=== PATIENT | female | born 1970 | race Caucasian/White ===

== ENCOUNTER 2021-10-26 08:50 | Outpatient (REF) | payer OTHER, SELFPAY ==
--- NOTE | ~2021-10-26 | FL_ITS ---
EXAMINATION: XR FLUOROSCOPY UPPER GI WITH AIR CLINICAL INFORMATION: Gastritis COMPARISON: None TECHNIQUE: Upper GI was performed using thin and thick barium and effervescent granules. FINDINGS: There is a small hiatal hernia. There is mild gastroesophageal reflux. There is fold thickening of the stomach suggestive of gastritis. There is a deformity and underdistention of the duodenal bulb questionable for changes from ulcer disease. No mass or stricture is seen. FLUOROSCOPY TIME: 1.2 minutes DOSE AREA PRODUCT: 8.6 haile per centimeter squared. 22 saved fluoroscopic images. FL/FL upper GI w air IMPRESSION: Fold thickening of the stomach suggestive of gastritis. Deformity and underdistention of the duodenal bulb questionable for changes from ulcer disease. Small hiatal hernia. Mild gastroesophageal reflux.
[2021-10-26 09:20] LABS: MANUAL DIFF FLAG NO
[2021-10-26 10:02] LABS: Basophils Absolute Auto 0.1 X10*3/uL (0.0-0.2); Basophils Percent Auto 0.7 % (0-2); Eosinophils Absolute Auto 0.3 X10*3/uL (0.0-0.4); Eosinophils Percent Auto 2.3 % (0-4); Hematocrit 50.6 % (37.0-47.0); Imm Gran Abs Auto 0.03 X10*3/uL (0.00-0.03); Imm Gran Pct Auto 0.3 % (0.0-0.4); Lymphocytes Absolute Auto 3.3 X10*3/uL (1.2-4.9); Lymphocytes Percent Auto 27.7 % (20-40); Mean Corpuscular HGB Conc 33.6 g/dl (31.0-35.0); Mean Corpuscular Hemoglobin 32.1 pg (27.0-33.0); Mean Corpuscular Volume 95.5 fL (80.0-98.0); Mean Platelet Volume 10.1 fL (9.4-12.3); Monocytes Absolute Auto 0.8 X10*3/uL (0.1-1.2); Monocytes Percent Auto 6.6 % (2-11); Neutrophils Absolute Auto 7.4 x10*3/uL (2.0-8.3); Neutrophils Percent Auto 62.4 % (45-73); Platelet Count 260 X10*3/uL (160-400); Red Cell Distribution Width 13.1 % (11.0-16.0); White Blood Count 11.9 X10*3/uL (4.8-10.8)
[2021-10-26 10:17] LABS: Alanine Aminotransferase 16 U/L (0-31); Albumin Level 4.5 g/dL (3.5-5.0); Alkaline Phosphatase 98 U/L (39-117); Anion Gap 14 (12-20); Aspartate Amino Transferase 26 U/L (5-31); Bilirubin Total 0.4 mg/dL (0.0-1.0); Blood Urea Nitrogen 10 mg/dL (9-16); Calcium 10.4 mg/dL (8.4-10.2); Carbon Dioxide 27 mmol/L (22-29); Chloride 104 mmol/L (96-108); Cholesterol 192 mg/dL; Estimated Glomerular Filt Rate > 60; Glucose Fasting 105 mg/dL (60-99); HDL Cholesterol 90 mg/dL; LDL Cholesterol Calculated 81 mg/dl; Sodium 140 mmol/L (135-145); Triglycerides 106 mg/dL
[2021-10-26 10:39] LABS: TSH reflex Free T4 0.51 uIU/mL (0.32-4.0)
[2021-10-26 11:09] LABS: Appearance Urine CLOUDY; Color Urine YELLOW; Glucose Urine UA NEG (NEG); Leukocyte Esterase Urine NEG (NEG); Nitrite Urine POS (NEG); PH 5.5 (5.0-8.0); Specific Gravity - Urine >= 1.030 (1.005-1.025); UACC Culture Trigger YES; Urine Blood 1+ (NEG); Urine Ketones 5 MG/DL (NEG); Urine Protein 1+ MG/DL (NEG-TRACE)
[2021-10-26 11:26] LABS: Bacteria Urine TRACE /LPF; Squamous Epithelial Cell Urine 2+ /LPF; WBC Urine 0 /HPF (0-4)
[2021-10-26 11:27] LABS: Amorphous Sediment Urine 4+ /LPF
== END 2021-10-26 08:51 | disposition home or self-care (01) ==
LOC: HO.XRAY 08:50
PROVIDERS: PCP Internal Medicine; Visit Provider Internal Medicine
DX: K29.70 Gastritis, unspecified, without bleeding (principal); J98.8 Other specified respiratory disorders; E78.00 Pure hypercholesterolemia, unspecified; J45.20 Mild intermittent asthma, uncomplicated; F17.200 Nicotine dependence, unspecified, uncomplicated
CPT/HCPCS: 36415; 74246; 80053; 80061; 81001; 81003; 84443; 85025; 87086

== ENCOUNTER 2024-04-20 12:42 | Outpatient (REF) | payer OTHER, SELFPAY ==
--- NOTE | ~2024-04-20 | XR_ITS ---
EXAMINATION: XR LUMBAR SPINE XR SHOULDER, LEFT CLINICAL INDICATION: Low back pain, left shoulder pain. COMPARISON: MRI lumbar spine 04/28/2017, x-ray lumbar spine 06/28/2016. TECHNIQUE: 3 views lumbar spine. 4 views left shoulder. FINDINGS: LUMBAR SPINE: Facet arthritis in the lower lumbar spine. Mild multilevel lumbar spondylosis with mild loss of disc space height at L4-L5. LEFT SHOULDER: Mild degenerative changes in the acromioclavicular joint with joint space narrowing and hypertrophic change. Glenohumeral alignment is preserved. No abnormal soft tissue calcifications identified adjacent to the humeral head. XR/XR lumbar spine 2-3V IMPRESSION: 1. Mild multilevel lumbar spondylosis with mild loss of disc space height at L4-L5. 2. Mild degenerative changes left acromioclavicular joint.
--- NOTE | ~2024-04-20 | XR_ITS ---
EXAMINATION: XR LUMBAR SPINE XR SHOULDER, LEFT CLINICAL INDICATION: Low back pain, left shoulder pain. COMPARISON: MRI lumbar spine 04/28/2017, x-ray lumbar spine 06/28/2016. TECHNIQUE: 3 views lumbar spine. 4 views left shoulder. FINDINGS: LUMBAR SPINE: Facet arthritis in the lower lumbar spine. Mild multilevel lumbar spondylosis with mild loss of disc space height at L4-L5. LEFT SHOULDER: Mild degenerative changes in the acromioclavicular joint with joint space narrowing and hypertrophic change. Glenohumeral alignment is preserved. No abnormal soft tissue calcifications identified adjacent to the humeral head. XR/XR shoulder LT min 2V IMPRESSION: 1. Mild multilevel lumbar spondylosis with mild loss of disc space height at L4-L5. 2. Mild degenerative changes left acromioclavicular joint.
== END 2024-04-20 12:43 | disposition home or self-care (01) ==
LOC: HO.XRAY 12:42
PROVIDERS: PCP Internal Medicine; Visit Provider Internal Medicine
DX: M25.512 Pain in left shoulder (principal); M54.50 Low back pain, unspecified
CPT/HCPCS: 72100; 73030

== ENCOUNTER 2024-07-29 10:30 | Outpatient (AMB) | payer OTHER, SELFPAY ==
--- NOTE | 2024-07-29 10:31 | A.OFFPC_ITS ---
Vital Signs 07/29/24 10:33 Height 5 ft 5 in Weight 142 lb 4 oz BMI 23.7 BP 110/80 Blood Pressure Location Lt brachial Position Sitting Pulse 99 Pulse Source Pulse Oximeter Pulse Oximetry (%) 96 Oxygen Delivery Method Room Air Intake Visit Reasons: follow up Intake Note: Patient is here to follow up on Asthma, LDDD, Anxiety. Pt decline flu shot today. Lidar Scientist Required: No Retail Specialist: Not Required per policy Accompanied by: Self / Same As Patient Allergies amoxicillin Allergy (Unknown, Verified 07/29/24 10:55) Unknown cephalexin [Keflex] Allergy (Unknown, Verified 07/29/24 10:55) Unknown citalopram Adverse Reaction (Unknown, Verified 07/29/24 10:55) increased depression/anger venlafaxine Adverse Reaction (Unknown, Verified 07/29/24 10:55) increased depression/anger Medication List - Last Reconciled 07/29/24 by Toribio Clark MD lorazepam 1 tablet 1 to 2 times a day only as needed for anxiety PO PRN; 30 days omeprazole 40 mg PO DAILY 30 days Ventolin HFA 90 mcg/actuation (albuterol sulfate) 2 puffs PO Q6H PRN NS Tobacco use date assessed: 07/29/24 Dental Screening Dental Screen Date: 07/29/24 Did you have a dental visit in the last 12 months?: No Did you have a dental problem in the last 6 months where you did not have access to dental care?: No Was dental information given to patient?: No HPI follow up HPI Details Patient comes in today for her follow up visit States that she feels her ears cracking a lot over the past couple of days - is concerned that she may have some ear infection States that she has been experiencing increased nasal and sinus congestion often lately and is thinking about getting herself one of the Navage nasal irrigation system that she keeps hearing about on the radio but she found out recently that they are quite expensive - about $80 to $90 per unit Is wondering if there is any way her insurance will help cover the unit Adds that she has been experiencing increased pain over her lower back for a while now and her left shoulder has been hurting a lot as well She denies any fever or sore throat; denies any headaches or dizziness Denies any chest pains, no increased SOB; she also denies any coughing No nausea/vomiting, no abdominal pain No change in bowel habits noted She continues to experience increased anxiety - states that Lorazepam helps but only temporarily and she really does not want to take it too much for fear of getting addicted to it [facility] Medical History Alcohol use Anxiety Asthma Gastritis Lumbar degenerative disc disease Smoker Surgical History No pertinent past surgical history Family History Father No problems noted. Mother No problems noted. Social History Housing: Apartment Alcohol intake: current Alcohol intake frequency: 3 or more drinks per day Alcohol type: wine Patient Tobacco Use Status: Current everyday Tobacco user Tobacco use type: Cigarette Cigarette Packs Per Day: 1 Cigarettes Per Day: 12 e-Cigarette/Vaping Use: Never Used Second Hand Smoke Exposure: Yes service: No Current occupational status: unemployed Cognitive needs: No Hearing needs: No Vision needs: No Questionnaire PHQ-9 Over the last 2 weeks, how often have you been bothered by any of the following problems? 1. Little interest or pleasure in doing things: nearly every day 2. Feeling down, depressed, or hopeless: several days 3. Trouble falling or staying asleep, or sleeping too much: nearly every day 4. Feeling tired or having little energy: more than half the days 5. Poor appetite or overeating: not at all 6. Feeling bad about yourself - or that you are a failure or have let yourself or your family down: more than half the days 7. Trouble concentrating on things, such as reading the newspaper or watching television: not at all 8. Moving or speaking so slowly that other people could have noticed. Or the opposite - being so fidgety or restless that you have been moving around a lot more than usual: not at all 9. Thoughts that you would be better off or of hurting yourself in some way: not at all Total score: 11 Depression Screening Interpretation: Positive Depression Screening Follow-up: Existing condition and New Medication prescribed Depression Screening Done: Yes 36410 - PHQ-9 Billing: Yes Source: Developed by Drs. Trae LDevorah Del Rio, Ed Joiner and colleagues, with an educational hair from [employer]. Thrive Questionnaire Date Thrive assessed: 07/29/24 I am a: Patient What is your living situation today?: I have a steady place to live Within the past 12 months, did the food you bought not last and you didn't have the money to get more?: Never true Within the past 12 months, did you worry whether your food would run out before you got money to buy more?: Never true Do you have trouble paying for medicines?: No Do you have trouble getting transportation to medical appointments?: No Do you have trouble paying your heating and electricity bill?: No Do you have trouble taking care of your child, family member or friend?: No Do you have trouble with day-to-day activities such as bathing, preparing meals, shopping, managing finances, etc.?: No Are you currently unemployed and looking for a job?: I choose not to answer this question Are you interested in more education?: No Currently or been in a relationship where the following occur: No concerns reported THRIVE Score: 0 AUDIT C Alcohol Use Questionnaire (AUDIT-C) 1. How often do you have a drink containing alcohol?: 4 or more times a week 2. How many drinks containing alcohol do you have on a typical day when you are drinking?: 1 or 2 3. How often do you have six or more drinks on one occasion?: Never Total Score: 4 Score Reviewed/Action Taken: Yes GLEN-7 AMB Questionnaire GLEN-7 Date GLEN - 7 assessed: 07/29/24 Feeling nervous, anxious, or on edge: 3 = Nearly every day Not being able to stop or control worryin = Nearly every day Worrying too much about different things: 3 = Nearly every day Trouble relaxin = More than half the days Being so restless that it is hard to sit still: 2 = More than half the days Becoming easily annoyed or irritable: 3 = Nearly every day Feeling afraid as if something awful might happen: 3 = Nearly every day Total GLEN-7 score (0-4 normal; 5-9 mild; 10-14 moderate; 15-21 severe): 19 Source: Developed by Devorah Quinn Kurt Kroenke and colleagues, with an educational hair from [employer]. Review of Systems Const Denies chills, Reports difficulty sleeping, Reports fatigue, Denies fever(s) and Denies headache(s) ENT Denies dysphagia, Denies dizziness, Denies otalgia (but feels her ears cracking a lot lately), Denies headache(s), Reports nasal congestion, Denies n mynor pain, Denies odynophagia, Denies sinus pain and Denies sore throat Card Denies chest pain, Denies palpitations and Denies dyspnea Resp Denies chest congestion, Denies cough, Denies dyspnea and Denies wheezing GI Denies abdominal pain, Denies constipation, Denies dysphagia, Denies heartburn, Denies diarrhea, Denies nausea, Denies odynophagia and Denies vomiting Denies difficulty voiding, Denies nocturia, Denies dysuria and Denies urinary urgency Musc Reports back pain (over the lower back - increasing), Reports arthralgias (in the left shoulder) and Denies neck pain Neuro Denies dizziness and Denies headache(s) Psych Reports anxiety (increased) Endo Reports fatigue and Denies palpitations Aller/Immun Denies wheezing Physical exam (Primary Care) Vital Signs: Last Vital Signs Pulse 99 07/29/24 10:33 BP 110/80 07/29/24 10:33 Pulse Ox 96 07/29/24 10:33 Oxygen Delivery Method Room Air 07/29/24 10:33 BMI result Body Mass Index 23.7 Tobacco/Smoking Status: Tobacco use Status Tobacco use date assessed 07/29/24 07/29/24 10:41 Patient Tobacco Use Status Current everyday Tobacco 07/29/24 10:41 Tobacco use type Cigarette 07/29/24 10:41 e-Cigarette/Vaping Use Never Used 07/29/24 10:41 PHQ-9: PHQ-9 Score PHQ-9: Total score 11 07/29/24 10:56 Depression Screening Interpretation: Positive Depression Screening Follow-up: Ex isting condition and New Medication prescribed Thrive Assessment: Date of Thrive Assessment Date Thrive assessed 07/29/24 07/29/24 10:41 Currently or been in a relationship where the following occur: No concerns reported Const General: no acute distress and alert HENMT Ears: TM's normal bilaterally and EAC's normal Throat: Yes posterior oropharynx normal and Yes tonsils normal (no TP congestion) Neck Neck: Yes no lymphadenopathy and Yes supple Thyroid: Thyroid normal Resp Auscultation: clear to auscultation bilaterally, no rales and no wheezes Cardio Rate: regular rate Rhythm: regular rhythm Heart sounds: no murmurs GI Palpation (GI): Soft to palpation and nontender Auscultation: normal bowel sounds General: Yes no CVA tenderness Back/Spine/Pelvis Back: no CVA tenderness Thoracic/Lumbar Spine: lumbar spinal tenderness Skin Rashes: no rashes Extrem General: Yes no clubbing, cyanosis or edema Left upper extremity: shoulder/upper arm Details: tenderness Location: of the A- C joint; no swelling Coding Level of Care Code Est Pt Level 4 (17936) Diagnoses Degeneration of intervertebral disc of lumbar region with discogenic back pain M51.360 Disc-related pain type: discogenic back pain only Primary osteoarthritis, left shoulder M19.012 Allergic rhinitis, unspecified seasonality, unspecified trigger J30.9 Allergic rhinitis trigger: unspecified Allergic rhinitis seasonality: unspecified Mild intermittent asthma without complication J45.20 Asthma severity: mild Asthma persistence: intermittent Asthma complication type: uncomplicated Gastritis without bleeding, unspecified chronicity, unspecified gastritis type K29.70 Gastritis type: unspecified gastritis Chronicity: unspecified Gastritis bleeding: without bleeding Loss of height R29.890 Alcohol use Z72.89 Anxiety F41.9 Smoker F17.200 Assessment & Plan Assessment & Plan (1) Lumbar degenerative disc disease: Code(s): M51.36 - Other intervertebral disc degeneration, lumbar region Category: Medical Qualifiers: Disc-related pain type: discogenic back pain only Qualified Code(s): M51.360 - Other intervertebral disc degeneration, lumbar region with discogenic back pain only Plan: Reinforced activity and weight-lifting restrictions Lumbar spine x-rays done back in April 2024 revealed (+) mild multilevel lumbar spondylosis with mild loss of disc space height at L4-L5 As she reports experiencing increasing pain over her lower back lately, will refer her to physical therapy for them to help patient work on her lower back issues (2) Primary osteoarthritis, left shoulder: Code(s): M19.012 - Primary osteoarthritis, left shoulder Category: Medical Plan: X-rays of the left shoulder done in April 2024 revealed (+) mild degenerative changes left acromioclavicular joint Will also refer her to physical therapy to help her work on her shoulder issues (3) Allergic rhinitis: Code(s): J30.9 - Allergic rhinitis, unspecified Category: Medical Qualifiers: Allergic rhinitis trigger: unspecified Allergic rhinitis seasonality: unspecified Qualified Code(s): J30.9 - Allergic rhinitis, unspecified Plan: Will start patient again on Fluticasone 50 mcg nasal spray QD PRN Per request, have provided her with printed Rx for Navage nasal irrigation system - patient will try to fill this at her local pharmacy but advised that her insurance will likely not cover this (4) Asthma: Code(s): J45.909 - Unspecified asthma, uncomplicated Category: Medical Qualifiers: Asthma severity: mild Asthma persistence: intermittent Asthma complication type: uncomplicated Qualified Code(s): J45.20 - Mild intermittent asthma, uncomplicated Plan: Controlled Continue Albuterol HFA 2 puffs 4 times a day as needed (5) Gastritis: Code(s): K29.70 - Gastritis, unspecified, without bleeding Category: Medical Qualifiers: Gastritis type: unspecified gastritis Chronicity: unspecified Gastritis bleeding: without bleeding Qualified Code(s): K29.70 - Gastritis, unspecified, without bleeding Plan: Reinforced dietary restrictions Upper GI series in October 2021 revealed (+) changes consistent with gastritis and also possibly an ulcer Continue Omeprazole 40 mg QD States that she has been doing a lot better symptom-doran on Omeprazole and has not had any symptom flare up since she was started on the Rx last year (6) Loss of height: Code(s): R29.890 - Loss of height Category: Medical Plan: Patient was surprised at finding out that she seems to have lost a couple of inches in her height when it was measured here in the office when she was being triaged States that she has never had a BMD done and it has been about 6 to 7 years now since she last had her menstrual period Will go ahead and send her for BMD for osteoporosis screening (7) Alcohol use: Code(s): Z72.89 - Other problems related to lifestyle Category: Social Hx Plan: Patient is counseled again on the dangers of ETOH and urged to quit drinking or to at least cut back on the amount of alcohol she consumes daily (8) Anxiety: Code(s): F41.9 - Anxiety disorder, unspecified Category: Medical Plan: Continue Lorazepam 1 mg 1 to 2 times a day as needed - states that this helps but she tries not to take it too often for fear of becoming addicted to the Rx Have advised patient that the best way to go about controlling her anxiety better is to start taking a maintenance Rx and if it works well enough, she may not even feel the need to take any Lorazepam - patient now agrees to this Will start her on Sertraline 25 mg QD - patient is advised to call in a month or so if she does not feel that the Rx is helping enough and we will then try to gradually increase her dose until she feels it is working for her (9) Smoker: Code(s): F17.200 - Nicotine dependence, unspecified, uncomplicated Category: Social Hx Plan: Patient is counseled again on smoking cessation Plan To return in 6 months for her next annual physical examination Orders: Orders XR DEXA axial skeleton 07/29/24 Z78.0 - Asymptomatic menopausal state PT Evaluation and Treatment 07/29/24 J30.9 - Allergic rhinitis, unspecified, M19.012 - Primary osteoarthritis, left shoulder, M51.36 - Other intervertebral disc degeneration, lumbar region Medications: New [NAVAGE NASAL IRRIGATION SYSTEM] As directed 1 ea 0RF J30.9 - Allergic rhinitis, unspecified, R09.81 - Nasal congestion fluticasone propionate 50 mcg/actuation administer into each nostril 2 sprays intranasal DAILY 30 days PRN 16 grams 5RF allergy symptoms sertraline 25 mg PO DAILY 30 days 30 tabs 3RF F41.9 - Anxiety disorder, unspecified
[2024-07-29 10:33] VITALS: BP 110/80; PULSE 99; O2SAT 96; BMI 23.7
== END 2024-07-29 11:12 | disposition home or self-care (01) ==
PROVIDERS: PCP Internal Medicine; Visit Provider Internal Medicine
DX: M51.360 Other intervertebral disc degeneration, lumbar region with discogenic back pain only (principal); M19.012 Primary osteoarthritis, left shoulder; J30.9 Allergic rhinitis, unspecified; J45.20 Mild intermittent asthma, uncomplicated; K29.70 Gastritis, unspecified, without bleeding; R29.890 Loss of height; Z72.89 Other problems related to lifestyle; F41.9 Anxiety disorder, unspecified; F17.200 Nicotine dependence, unspecified, uncomplicated

== ENCOUNTER → 2024-07-29 10:30 | Outpatient (BNVA) | payer OTHER, SELFPAY | PROVIDERS: PCP Internal Medicine; Visit Provider Internal Medicine | DX: M51.360 Other intervertebral disc degeneration, lumbar region with discogenic back pain only (principal); M19.012 Primary osteoarthritis, left shoulder; J30.9 Allergic rhinitis, unspecified; J45.20 Mild intermittent asthma, uncomplicated; K29.70 Gastritis, unspecified, without bleeding; R29.890 Loss of height | CPT/HCPCS: 96127; 99212 ==

== ENCOUNTER 2024-08-18 10:23 | Outpatient (REF) | payer OTHER, SELFPAY ==
--- NOTE | ~2024-08-18 | MM_ITS ---
EXAMINATION: BONE DENSITOMETRY CLINICAL INDICATION: Menopause. COMPARISON: This is the patient's baseline examination. TECHNIQUE: Using a [employer] DXA System (software version: 13.1) manufactured by [employer], dual-energy x-ray absorptiometry was performed of the lumbar spine and left hip. The images are of good technical quality. Summary results are attached. FINDINGS: LEFT FEMUR, NECK: BMD 0.616 g/cm2, Z-score -2.0, T-score -3.0, osteoporosis. LEFT FEMUR, TOTAL: BMD 0.679 g/cm2, Z-score -2.0, T-score -2.6, osteoporosis. AP SPINE L1-L4: BMD 0.894 g/cm2, Z-score -1.6, T-score -2.4, osteopenia. IDENTIFIED RISK FACTORS: Menopause, height loss, alcohol (3 or more units per day), tobacco use (current smoker). HISTORY OF FRACTURE: None listed. MEDICATIONS: Multivitamin. MM/XR DEXA axial skeleton IMPRESSION: 1. DIAGNOSIS: Osteoporosis based on the lowest T-score value of -3.0 in the femoral neck applying World Health Organization criteria. 2. 10-YEAR FRACTURE RISK PREDICTION, FRAX: According to the guidelines, FRAX calculation should only be performed on patients in the osteopenia bone density category. Therefore, FRAX was not performed on this patient. 3. Treatment Recommendations: NOF guidelines recommend consideration for treatment in postmenopausal women and men age 50 and older presenting with the following: -A hip or vertebral (clinical or morphometric) fracture. -T-score less than or equal to -2.5 at the femoral neck or spine after appropriate evaluation to exclude secondary causes. -Low bone mass at the hip or spine and a 10-year fracture probability by FRAX of greater than or equal to 3% for hip fracture or greater than or equal to 20% for major osteoporotic fracture based on the [place] adapted WHO algorithm. 4. Other Recommendations: All treatment decisions require clinical judgment and consideration of individual patient factors, including patient preferences, comorbidities, previous drug use, risk factors not captured in the FRAX model (e.g. frailty, falls, vitamin D deficiency, increased bone turnover, interval significant decline in bone density) and possible under or overestimation of fracture risk by FRAX. Additional medical evaluation for secondary cause of low bone mineral density may be appropriate. FUTURE SCAN RECOMMENDATION: People with diagnosed cases of osteoporosis or at high risk for fracture should have regular bone mineral density tests. For patients eligible for Medicare, routine testing is allowed once every 2 years. The testing frequency can be increased to one year for patients who have rapidly progressing disease, those who are receiving or discontinuing medical therapy to restore bone mass, or have additional risk factors. Electronically signed by: Sweta Ulloa MD 08/19/2024 09:03 AM FERNANDA GROVER
== END 2024-08-18 10:24 | disposition home or self-care (01) ==
LOC: HO.MAMMO 10:23
PROVIDERS: PCP Internal Medicine; Visit Provider Internal Medicine
DX: Z78.0 Asymptomatic menopausal state (principal)
CPT/HCPCS: 77080

== ENCOUNTER 2024-11-26 12:08 | Emergency (ER) | payer OTHER, SELFPAY ==
[2024-11-26 12:15] VITALS: BP 177/97; PULSE 116; RESP 18; TEMP 36.8; O2SAT 97; BMI 22.8
--- NOTE | 2024-11-26 12:20 | ED.GENADULT ---
HPI - General Adult General Chief complaint: Allergic Reaction Stated complaint: Chemical Reaction to Hair Dye 11/23/24 Time Seen by Provider: 11/26/24 19:12 Related Data Previous Rx's ?Medication ?Instructions ?Recorded lorazepam 0.5 mg tablet See Rx Instructions PO .COMPLEX 01/20/24 PRN anxiety 30 days #60 tabs [employer]ATION SYSTEM #1 ea 07/29/24 fluticasone propionate 50 2 spray intranasal DAILY PRN 07/29/24 mcg/actuation nasal allergy symptoms 30 days #16 grams spray,suspension sertraline 25 mg tablet 25 mg PO DAILY 30 days #30 tabs 07/29/24 Ventolin HFA 90 mcg/actuation 2 puff PO Q6H PRN for wheezing #18 09/20/24 aerosol inhaler (albuterol sulfate) grams omeprazole 40 mg capsule,delayed 40 mg PO DAILY 30 days #90 caps 11/19/24 release famotidine 40 mg tablet (Pepcid) 40 mg PO DAILY #5 tabs 11/26/24 ibuprofen 600 mg tablet 600 mg PO Q8H PRN fever or pain 11/26/24 #30 tabs mupirocin calcium 2 % topical cream 1 appl topical TID #30 grams 11/26/24 prednisone 50 mg tablet 50 mg PO DAILY #5 tabs 11/26/24 tramadol 50 mg tablet 50 mg PO BID PRN pain #8 tabs 11/26/24 Allergies Allergy/AdvReac Type Severity Reaction Status Date / Time amoxicillin Allergy Unknown Unknown Verified 11/26/24 12:17 cephalexin [Keflex] Allergy Unknown Unknown Verified 11/26/24 12:17 citalopram AdvReac Unknown increased Verified 11/26/24 12:17 depression/anger venlafaxine AdvReac Unknown increased Verified 11/26/24 12:17 depression/anger PMFSH Past Medical History Medical History Lumbar degenerative disc disease Gastritis Smoker Alcohol use Anxiety Asthma Surgical History No pertinent past surgical history Family History Family History Father No problems noted. Mother No problems noted. Social History Social History Housing: Apartment Alcohol intake: current Alcohol intake frequency: holidays/special occasions only Alcohol type: wine Patient Tobacco Use Status: Current everyday Tobacco user Tobacco use type: Cigarette Cigarette Packs Per Day: 1 Cigarettes Per Day: 12 Smoked in Last 30 Days: Yes e-Cigarette/Vaping Use: Never Used Second Hand Smoke Exposure: Yes Use of substances other than those prescribed or required for medical reasons: Yes Substance Use Type: Marijuana Advance Directives: No Advance Directives Information Provided: No service: No Current occupational status: unemployed Cognitive needs: No Hearing needs: No Vision needs: No Physical Exam ED Vital Signs: Vital Signs - 24 hr 11/26/24 12:15 11/26/24 19:45 Temperature 98.3 F 97.6 F Pulse Rate 116 H 86 Respiratory Rate 18 18 Blood Pressure 177/97 H 135/82 Pulse Oximetry 97 98 Oxygen Delivery Method Room Air Room Air BMI result Body Mass Index 22.8 Course Course Course Narrative: This is a rapid medical exam performed by Reshma Fox PA-C. The patient is a 54-year-old female with a history of arthritis, anxiety, asthma, who presents with potential allergic reaction. Patient states she was seen by a new hair sample matcher, she had hair coloring done. The next day the patient developed a painful rash over parts of her scalp, she also developed some irritation over the right eye. When she woke this morning, the eye was swollen and erythematous. Denies fever. On exam, she has periorbital erythema on the right both upper and lower lids are edematous. She has no angioedema, no complaint of dysphagia, odynophagia dyspnea. We will be screening basic labs, the patient will require imaging, concern for periorbital cellulitis versus allergic reaction. Having said that, the patient is stable, and can return to the waiting room pending her full medical assessment. Medications Administered Discontinued Medications Generic Name Dose Route Start Last Admin Trade Name Freq PRN Reason Stop Dose Admin Diphenhydramine HCl 50 mg 11/26/24 12:19 11/26/24 12:54 Diphenhydramine Hcl 25 Mg Capsule PO 11/26/24 12:20 50 mg ONCE ONE Administration Diphenhydramine HCl 50 mg 11/26/24 19:21 11/26/24 19:35 Diphenhydramine Hcl 50 Mg/Ml Vial IVPUSH 11/26/24 19:22 50 mg ONCE ONE Administration Famotidine 20 mg 11/26/24 12:19 11/26/24 12:54 Famotidine 20 Mg Tablet PO 11/26/24 12:20 20 mg ONCE ONE Administration Famotidine 20 mg 11/26/24 19:21 11/26/24 19:35 Famotidine/Pf 20 Mg/2 Ml Vial IVPUSH 11/26/24 19:22 20 mg ONCE ONE Administration Methylprednisolone Sodium Succinate 125 mg 11/26/24 19:21 11/26/24 19:35 Methylprednisolone Sod Succ 125 Mg/2 Ml Vial IVPUSH 11/26/24 19:22 125 mg ONCE ONE Administration Morphine Sulfate 2 mg 11/26/24 19:21 11/26/24 19:35 Morphine Sulfate 2 Mg/Ml Cartridge IVPUSH 11/26/24 19:22 2 mg ONCE ONE Administration Protocol Medical Decision Making Lab Data 11/26/24 13:15 11/26/24 13:15 Labs: Lab Results 11/26/24 Range/Units 13:15 WBC 13.9 H (4.8-10.8) X10*3/uL RBC 4.95 (4.20-5.50) X10*6/uL Hgb 15.6 (12.0-16.0) g/dl Hct 46.7 (37.0-47.0) % MCV 94.3 (80.0-98.0) fL MCH 31.5 (27.0-33.0) pg MCHC 33.4 (31.0-35.0) g/dl RDW 12.2 (11.0-16.0) % Plt Count 334 D (160-400) X10*3/uL MPV 10.2 (9.4-12.3) fL Immature Gran % (Auto) 0.4 (0.0-0.4) % Neut % (Auto) 60.1 (45-73) % Lymph % (Auto) 21.7 (20-40) % [place] % (Auto) 6.5 (2-11) % Eos % (Auto) 10.7 H (0-4) % Baso % (Auto) 0.6 (0-2) % Lymph # (Auto) 3.0 (1.2-4.9) X10*3/uL [place] # (Auto) 0.9 (0.1-1.2) X10*3/uL Eos # (Auto) 1.5 H (0.0-0.4) X10*3/uL Baso # (Auto) 0.1 (0.0-0.2) X10*3/uL Abs Immat Gran (auto) 0.06 H (0.00-0.03) X10*3/uL Absolute Neuts (auto) 8.4 H (2.0-8.3) x10*3/uL Absolute Nucleated RBC 0.000 (0.0-0.012) X10*3/uL Nucleated RBC % (auto) 0.0 (0.0-0.2) /100WBC ESR 11 (0-20) MM/HR Sodium 140 (135-145) mmol/L Potassium 4.3 (3.3-5.1) mmol/L Chloride 108 (96-108) mmol/L Carbon Dioxide 24 (22-29) mmol/L Anion Gap 12 (12-20) BUN 13 (9-16) mg/dL Creatinine 0.81 (0.5-1.4) mg/dL Estim Creat Clear Calc 76.2 Estimated GFR > 60 Random Glucose 113 (60-115) mg/dL Calcium 9.9 (8.4-10.2) mg/dL Magnesium 1.8 (1.6-2.6) mg/dL C-Reactive Protein 1.36 H (< or = 0.50) mg/dL Discharge Plan Discharge Clinical Impression: Allergic reaction to chemical substance, Impetigo Patient Disposition: Home, Self-Care Instructions: Impetigo (ED), Chemical Skin Burn (ED) Additional Instructions: Please follow-up with your primary care physician tomorrow. If you have any worsening or new symptoms, please return to the emergency room or call 911 Prescriptions: New mupirocin calcium 2 % cream 1 appl topical TID Qty: 30 2RF prednisone 50 mg tablet 50 mg PO DAILY Qty: 5 0RF famotidine [Pepcid] 40 mg tablet 40 mg PO DAILY Qty: 5 0RF ibuprofen 600 mg tablet 600 mg PO Q8H PRN (Reason: fever or pain) Qty: 30 0RF tramadol 50 mg tablet 50 mg PO BID PRN (Reason: pain) Qty: 8 0RF No Action lorazepam 0.5 mg tablet See Rx Instructions PO .COMPLEX PRN (Reason: anxiety) 30 Days Qty: 60 1RF Rx Instructions: 1 tablet 1 to 2 times a day only as needed for anxiety PO PRN; albuterol sulfate [Ventolin HFA] 90 mcg/actuation HFA aerosol inhaler 2 puff PO Q6H PRN (Reason: for wheezing) Qty: 18 5RF omeprazole 40 mg capsule,delayed release(DR/EC) 40 mg PO DAILY 30 Days Qty: 90 3RF (DME) [employer] SYSTEM See Rx Instructions .Route .MEDSUPPLY Qty: 1 0RF Rx Instructions: As directed fluticasone propionate 50 mcg/actuation spray,suspension 2 spray intranasal DAILY PRN (Reason: allergy symptoms) 30 Days Qty: 16 5RF Rx Instructions: administer into each nostril sertraline 25 mg tablet 25 mg PO DAILY 30 Days Qty: 30 3RF Print Language: Burmese
[2024-11-26] MEDS: diphenhydrAMINE HCL 25 MG CAPSULE 50 MG PO (12:54)
[2024-11-26] MEDS: Famotidine 20 MG TABLET PO (12:54)
[2024-11-26 13:22] LABS: MANUAL DIFF FLAG NO
[2024-11-26 13:27] LABS: Basophils Absolute Auto 0.1 X10*3/uL (0.0-0.2); Basophils Percent Auto 0.6 % (0-2); Eosinophils Absolute Auto 1.5 X10*3/uL (0.0-0.4); Eosinophils Percent Auto 10.7 % (0-4); Hematocrit 46.7 % (37.0-47.0); Hemoglobin 15.6 g/dl (12.0-16.0); Imm Gran Abs Auto 0.06 X10*3/uL (0.00-0.03); Imm Gran Pct Auto 0.4 % (0.0-0.4); Lymphocytes Percent Auto 21.7 % (20-40); Mean Corpuscular HGB Conc 33.4 g/dl (31.0-35.0); Mean Corpuscular Hemoglobin 31.5 pg (27.0-33.0); Mean Corpuscular Volume 94.3 fL (80.0-98.0); Mean Platelet Volume 10.2 fL (9.4-12.3); Monocytes Absolute Auto 0.9 X10*3/uL (0.1-1.2); Monocytes Percent Auto 6.5 % (2-11); Neutrophils Absolute Auto 8.4 x10*3/uL (2.0-8.3); Neutrophils Percent Auto 60.1 % (45-73); Platelet Count 334 X10*3/uL (160-400); Red Blood Count 4.95 X10*6/uL (4.20-5.50); Red Cell Distribution Width 12.2 % (11.0-16.0); White Blood Count 13.9 X10*3/uL (4.8-10.8)
[2024-11-26 13:40] LABS: Anion Gap 12 (12-20); Blood Urea Nitrogen 13 mg/dL (9-16); C Reactive Protein 1.36 mg/dL (< or = 0.50); Calcium 9.9 mg/dL (8.4-10.2); Carbon Dioxide 24 mmol/L (22-29); Chloride 108 mmol/L (96-108); Creatinine Clr Calc Pharmacy 76.2; Estimated Glomerular Filt Rate > 60; Glucose Random 113 mg/dL (60-115); Magnesium 1.8 mg/dL (1.6-2.6); Potassium 4.3 mmol/L (3.3-5.1); Sodium 140 mmol/L (135-145)
[2024-11-26 14:12] LABS: Erythrocyte Sedimentation Rate 11 MM/HR (0-20)
--- NOTE | 2024-11-26 19:23 | ED.ALLEREA ---
HPI - Allergic Reaction General Chief complaint: Allergic Reaction Stated complaint: Chemical Reaction to Hair Dye 11/23/24 Time Seen by Provider: 11/26/24 19:12 Source: patient Mode of arrival: ambulatory Limitations: no limitations History of Present Illness ED Provider: Dr. Vania Diaz HPI narrative: Patient comes to the emergency room complaining of an allergic reaction versus chemical burn to the scalp and forehead. Patient states that 3 days ago she went to the hair salon to dye her hair. In the evening after getting her dyed, the patient had some itching throughout her scalp. Patient thought it was secondary to dry skin from the chemical use. However, next day in the morning, her scalp started burning/hurting quite a bit. The patient also noticed that she had new irritation around her eyes in the skin, not the actual eye. Yesterday, patient noted that she was draining yellowish fluid from her scalp, pain in the scalp worsened. Patient also noted that there are blister-like lesions under both her eyes. Patient denies chest pain or shortness of breath. Denies trouble swallowing, denies any swelling in the oropharynx. Patient reports she does not have any new products at home including shampoo/body wash Related Data Previous Rx's ?Medication ?Instructions ?Recorded lorazepam 0.5 mg tablet See Rx Instructions PO .COMPLEX 01/20/24 PRN anxiety 30 days #60 tabs [employer] #1 ea 07/29/24 fluticasone propionate 50 2 spray intranasal DAILY PRN 07/29/24 mcg/actuation nasal allergy symptoms 30 days #16 grams spray,suspension sertraline 25 mg tablet 25 mg PO DAILY 30 days #30 tabs 07/29/24 Ventolin HFA 90 mcg/actuation 2 puff PO Q6H PRN for wheezing #18 09/20/24 aerosol inhaler (albuterol sulfate) grams omeprazole 40 mg capsule,delayed 40 mg PO DAILY 30 days #90 caps 11/19/24 release famotidine 40 mg tablet (Pepcid) 40 mg PO DAILY #5 tabs 11/26/24 ibuprofen 600 mg tablet 600 mg PO Q8H PRN fever or pain 11/26/24 #30 tabs mupirocin calcium 2 % topical cream 1 appl topical TID #30 grams 11/26/24 prednisone 50 mg tablet 50 mg PO DAILY #5 tabs 11/26/24 tramadol 50 mg tablet 50 mg PO BID PRN pain #8 tabs 11/26/24 Allergies Allergy/AdvReac Type Severity Reaction Status Date / Time amoxicillin Allergy Unknown Unknown Verified 11/26/24 12:17 cephalexin [Keflex] Allergy Unknown Unknown Verified 11/26/24 12:17 citalopram AdvReac Unknown increased Verified 11/26/24 12:17 depression/anger venlafaxine AdvReac Unknown increased Verified 11/26/24 12:17 depression/anger Review of Systems Review of Systems: Constitutional : No Weight loss, No Fever, No Chills, No Night Sweats, No Fatigue, No Malaise ENT/Mouth : No Hearing loss, No Ear Pain, No Nasal Congestion, No Sinus Pain, No Hoarseness, No sore throat, No Rhinorrhea, No Swallowing Difficulty Eyes: No Eye Pain, No Swelling, No Redness, No Foreign Body, No Discharge, No Vision Changes Cardiovascular : No Chest Pain, No SOB, No Dyspnea on Exertion, No Orthopnea, No Edema, No Palpitations Respiratory : No Cough, No Sputum, No Wheezing, No Smoke Exposure, No Dyspnea Gastrointestinal : No Nausea, No Vomiting, No Diarrhea, No Constipation, No abdominal Pain, No Hematochezia, No Melena Genitourinary : no irregular bleeding, No Dysuria, No Urinary Frequency, No Hematuria, No Urinary Incontinence, No Urgency, No Flank Pain, No Urinary Flow Changes, No Hesitancy Musculoskeletal : No joint pain, No Myalgias, No Joint Swelling Skin : Complaining of skin burning , pain, and itching in the scalp, forehead, Also fluid filled blisters under both eyes Neuro : No Weakness, No Numbness, No Paresthesias, No Loss of Consciousness, No Dizziness, No Headache Psych : No Anxiety/Panic, No Depression, No SI/HI/AH/VH, No Social Issues, Heme/Lymph: No Bruising, No Bleeding,No Lymphadenopathy Endocrine : No Polyuria, No Polydipsia, No Temperature Intolerance [facility] Past Medical History Medical History (Updated 11/26/24 @ 21:23 by Vania Diaz MD) Allergic rhinitis Lumbar degenerative disc disease Gastritis Smoker Alcohol use Anxiety Asthma Surgical History No pertinent past surgical history Family History Family History Father No problems noted. Mother No problems noted. Social History Social History Housing: Apartment Alcohol intake: current Alcohol intake frequency: holidays/special occasions only Alcohol type: wine Patient Tobacco Use Status: Current everyday Tobacco user Tobacco use type: Cigarette Cigarette Packs Per Day: 1 Cigarettes Per Day: 12 Smoked in Last 30 Days: Yes e-Cigarette/Vaping Use: Never Used Second Hand Smoke Exposure: Yes Use of substances other than those prescribed or required for medical reasons: Yes Substance Use Type: Marijuana Advance Directives: No Advance Directives Information Provided: No service: No Current occupational status: unemployed Cognitive needs: No Hearing needs: No Vision needs: No Physical Exam ED Vital Signs: Vital Signs - 24 hr 11/26/24 12:15 11/26/24 19:45 11/26/24 21:27 Temperature 98.3 F 97.6 F 99.1 F Pulse Rate 116 H 86 83 Respiratory Rate 18 18 18 Blood Pressure 177/97 H 135/82 133/77 Pulse Oximetry 97 98 96 Oxygen Delivery Method Room Air Room Air Room Air BMI result Body Mass Index 22.8 Const Other: Appearance: Alert. Oriented X3. Patient looks uncomfortable Eyes: Pupils equal, round and reactive to light. White sclera, normal eye movements, no conjunctival injection ENT: Pharynx normal. Neck: Normal inspection. Neck supple. No lymph nodes noted. No crepitus CVS: Normal heart rate and rhythm. Pulses normal. Normal S1 and S2 Respiratory: No respiratory distress. Breath sounds normal. No Wheezing. No rales Abdomen: Soft and nontender. No rigidity. No distention. Skin: Patient has a significant erythema on the forehead, no vesicles. The patient has 3 cm x 1 cm blisters in the cheecks under the lower eyelids, more prominent under the right eye. Patient's hair on the left side of the scalp is completely matted, mixed with honey crust material Extremities: No lower extremity edema. No Lacerations. No Rash Neuro: Oriented X 3. No motor deficit. No sensory deficit. Moving all extremities. No slurred speech. CN 2 through 12 grossly intact Psych: calm, cooperative, tearful Course Course Course Narrative: This is a rapid medical exam performed by Reshma Fox PA-C. The patient is a 54-year-old female with a history of arthritis, anxiety, asthma, who presents with potential allergic reaction. Patient states she was seen by a new office chair assembler, she had hair coloring done. The next day the patient developed a painful rash over parts of her scalp, she also developed some irritation over the right eye. When she woke this morning, the eye was swollen and erythematous. Denies fever. On exam, she has periorbital erythema on the right both upper and lower lids are edematous. She has no angioedema, no complaint of dysphagia, odynophagia dyspnea. We will be screening basic labs, the patient will require imaging, concern for periorbital cellulitis versus allergic reaction. Having said that, the patient is stable, and can return to the waiting room pending her full medical assessment. Patient will be receiving some pain medication, IV meds including Solu-Medrol, Pepcid and Benadryl I discussed with the patient's nurse and tech that we need to clean the matted and see what is happening underneath the matted hair. I believe there will be a large of significant irritations versus chemical burn Medications Administered Discontinued Medications Generic Name Dose Route Start Last Admin Trade Name Teresa PRN Reason Stop Dose Admin Diphenhydramine HCl 50 mg 11/26/24 12:19 11/26/24 12:54 Diphenhydramine Hcl 25 Mg Capsule PO 11/26/24 12:20 50 mg ONCE ONE Administration Diphenhydramine HCl 50 mg 11/26/24 19:21 11/26/24 19:35 Diphenhydramine Hcl 50 Mg/Ml Vial IVPUSH 11/26/24 19:22 50 mg ONCE ONE Administration Famotidine 20 mg 11/26/24 12:19 11/26/24 12:54 Famotidine 20 Mg Tablet PO 11/26/24 12:20 20 mg ONCE ONE Administration Famotidine 20 mg 11/26/24 19:21 11/26/24 19:35 Famotidine/Pf 20 Mg/2 Ml Vial IVPUSH 11/26/24 19:22 20 mg ONCE ONE Administration Methylprednisolone Sodium Succinate 125 mg 11/26/24 19:21 11/26/24 19:35 Methylprednisolone Sod Succ 125 Mg/2 Ml Vial IVPUSH 11/26/24 19:22 125 mg ONCE ONE Administration Morphine Sulfate 2 mg 11/26/24 19:21 11/26/24 19:35 Morphine Sulfate 2 Mg/Ml Cartridge IVPUSH 11/26/24 19:22 2 mg ONCE ONE Administration Protocol Medical Decision Making Medical Decision Making MDM Narrative: My interpretation of labs: Patient's hematology is 13.9, likely reactive leukocytosis, chemistry within normal limits, CRP mildly elevated Patient's techs and nurse assisted the patient to wash her hair and untangle the hair mat with baby shampoo Once the matted hair was cleaned, I was able to visualize the patient's scalp. It is difficult to say if this scalp lesion is a chemical burn versus an allergic reaction versus contact dermatitis. However, there are honey-crusted lesions throughout the left side of the scalp, patient likely has impetigo secondary to the initial chemical insult When patient arrived to the emergency room, she was given p.o. Benadryl and Pepcid. When I saw the patient, I recommended IV treatment. Patient received IV Solu-Medrol, Pepcid, Benadryl. Also, patient seemed significantly uncomfortable, in pain. Patient was given a dose of IV morphine. After the IV treatment, patient has erythema of the face improved. Patient is still has edema on the face cheeks under the lower eyelids. The erythema around the eyelids improved significantly. This makes periorbital cellulitis unlikely. Given that the patient had improvement with steroids, it is possible the patient may have had an allergic reaction. However, as mentioned above, chemical burn/dermatitis can not be ruled out Patient states that she is up-to-date with her tetanus shot, states that she received it a couple of years ago Prior to discharge, I applied bacitracin to the patient's scalp on the left I discussed with the patient that she needs to apply this 3 times a day. At home she may wash her hair with hypoallergenic shampoo and lukewarm water when she takes showers At this time, I do not think that the patient needs systemic antibiotics Patient was sent home with a prescription for mupirocin, prednisone, Pepcid, and tramadol p.r.n. pain. We discussed the potential of addiction when taking p.o. narcotics. Patient states that she will use this medication judiciously, and intends to use it mostly at night if the pain is severe and can not sleep Patient discharged in stable condition, blood pressure 135/82, heart rate 86, respirations 18, temperature 97.6 degrees, oxygen saturation 98% on room air Differential Diagnosis Differential Diagnoses: The differential diagnosis associated with the presentation includes (As above) Lab Data MDM Lab Attestation statement: I reviewed the patient's lab results. 11/26/24 13:15 11/26/24 13:15 Labs: Lab Results 11/26/24 Range/Units 13:15 WBC 13.9 H (4.8-10.8) X10*3/uL RBC 4.95 (4.20-5.50) X10*6/uL Hgb 15.6 (12.0-16.0) g/dl Hct 46.7 (37.0-47.0) % MCV 94.3 (80.0-98.0) fL MCH 31.5 (27.0-33.0) pg MCHC 33.4 (31.0-35.0) g/dl RDW 12.2 (11.0-16.0) % Plt Count 334 D (160-400) X10*3/uL MPV 10.2 (9.4-12.3) fL Immature Gran % (Auto) 0.4 (0.0-0.4) % Neut % (Auto) 60.1 (45-73) % Lymph % (Auto) 21.7 (20-40) % [place] % (Auto) 6.5 (2-11) % Eos % (Auto) 10.7 H (0-4) % Baso % (Auto) 0.6 (0-2) % Lymph # (Auto) 3.0 (1.2-4.9) X10*3/uL [place] # (Auto) 0.9 (0.1-1.2) X10*3/uL Eos # (Auto) 1.5 H (0.0-0.4) X10*3/uL Baso # (Auto) 0.1 (0.0-0.2) X10*3/uL Abs Immat Gran (auto) 0.06 H (0.00-0.03) X10*3/uL Absolute Neuts (auto) 8.4 H (2.0-8.3) x10*3/uL Absolute Nucleated RBC 0.000 (0.0-0.012) X10*3/uL Nucleated RBC % (auto) 0.0 (0.0-0.2) /100WBC ESR 11 (0-20) MM/HR Sodium 140 (135-145) mmol/L Potassium 4.3 (3.3-5.1) mmol/L Chloride 108 (96-108) mmol/L Carbon Dioxide 24 (22-29) mmol/L Anion Gap 12 (12-20) BUN 13 (9-16) mg/dL Creatinine 0.81 (0.5-1.4) mg/dL Estim Creat Clear Calc 76.2 Estimated GFR > 60 Random Glucose 113 (60-115) mg/dL Calcium 9.9 (8.4-10.2) mg/dL Magnesium 1.8 (1.6-2.6) mg/dL C-Reactive Protein 1.36 H (< or = 0.50) mg/dL Independent Historian Clinical information obtained from an independent historian. History obtained from or confirmed by: Spouse (Fiance at bedside) Discharge Plan Discharge Clinical Impression: Allergic reaction to chemical substance, Impetigo Patient Disposition: Home, Self-Care Instructions: Impetigo (ED), Chemical Skin Burn (ED) Additional Instructions: Please follow-up with your primary care physician tomorrow. If you have any worsening or new symptoms, please return to the emergency room or call 911 Prescriptions: New mupirocin calcium 2 % cream 1 appl topical TID Qty: 30 2RF prednisone 50 mg tablet 50 mg PO DAILY Qty: 5 0RF famotidine [Pepcid] 40 mg tablet 40 mg PO DAILY Qty: 5 0RF ibuprofen 600 mg tablet 600 mg PO Q8H PRN (Reason: fever or pain) Qty: 30 0RF tramadol 50 mg tablet 50 mg PO BID PRN (Reason: pain) Qty: 8 0RF No Action lorazepam 0.5 mg tablet See Rx Instructions PO .COMPLEX PRN (Reason: anxiety) 30 Days Qty: 60 1RF Rx Instructions: 1 tablet 1 to 2 times a day only as needed for anxiety PO PRN; albuterol sulfate [Ventolin HFA] 90 mcg/actuation HFA aerosol inhaler 2 puff PO Q6H PRN (Reason: for wheezing) Qty: 18 5RF omeprazole 40 mg capsule,delayed release(DR/EC) 40 mg PO DAILY 30 Days Qty: 90 3RF (DME) [employer]AL IRRIGATION SYSTEM See Rx Instructions .Route .MEDSUPPLY Qty: 1 0RF Rx Instructions: As directed fluticasone propionate 50 mcg/actuation spray,suspension 2 spray intranasal DAILY PRN (Reason: allergy symptoms) 30 Days Qty: 16 5RF Rx Instructions: administer into each nostril sertraline 25 mg tablet 25 mg PO DAILY 30 Days Qty: 30 3RF Interventions: ED Discharge Assessment Last Done: 11/26/24 21:27 Discharge Date/Time: 11/26/24 21:29 Print Language: Tamazight
[2024-11-26] MEDS: methylPREDNISolone Sod Succ 125 MG/2 ML VIAL IVPUSH (19:35)
[2024-11-26] MEDS: diphenhydrAMINE HCL 50 MG/ML VIAL IVPUSH (19:35)
[2024-11-26] MEDS: Morphine Sulfate 2 MG/ML CARTRIDGE IVPUSH (19:35)
[2024-11-26] MEDS: Famotidine/PF 20 MG/2 ML VIAL IVPUSH (19:35)
[2024-11-26 19:45] VITALS: BP 135/82; PULSE 86; RESP 18; TEMP 36.4; O2SAT 98
[2024-11-26 21:27] VITALS: BP 133/77; PULSE 83; RESP 18; TEMP 37.3; O2SAT 96
== END 2024-11-26 21:29 | disposition home or self-care (01) ==
PROVIDERS: Physician Assistant Medical; Emergency Provider Emergency Medicine; PCP Internal Medicine
DX: L01.00 Impetigo, unspecified (principal); Z79.899 Other long term (current) drug therapy
CPT/HCPCS: 36415; 80048; 83735; 85025; 85652; 86140; 96374; 96375; 99284; J1200; J2270; J2919

== ENCOUNTER 2024-12-01 12:43 | Outpatient (AMB) | payer OTHER, SELFPAY ==
[2024-12-01 12:44] VITALS: BP 152/84; PULSE 109; O2SAT 96; BMI 23.1
--- NOTE | 2024-12-01 12:44 | A.OFFPC_ITS ---
Vital Signs 12/01/24 12:44 Height 5 ft 7 in Weight 147 lb 4 oz BMI 23.1 BP 152/84 H Blood Pressure Location Lt brachial Position Sitting Pulse 109 H Pulse Source Pulse Oximeter Pulse Oximetry (%) 96 Oxygen Delivery Method Room Air Intake Visit Reasons: Chemical Reaction to Hair Dye [facility] [place] 11/26 Donor Relations Coordinator Required: No Accompanied by: Self / Same As Patient Allergies amoxicillin Allergy (Unknown, Verified 12/01/24 13:14) Unknown cephalexin [Keflex] Allergy (Unknown, Verified 12/01/24 13:14) Unknown citalopram Adverse Reaction (Unknown, Verified 12/01/24 13:14) increased depression/anger venlafaxine Adverse Reaction (Unknown, Verified 12/01/24 13:14) increased depression/anger Medication List - Last Reconciled 12/01/24 by Toribio Clark MD famotidine (Pepcid) 40 mg PO DAILY fluticasone propionate 50 mcg/actuation 2 sprays intranasal DAILY PRN 30 days ibuprofen 600 mg PO Q8H PRN lorazepam 1 tablet 1 to 2 times a day only as needed for anxiety PO PRN; 30 days mupirocin calcium 2% 1 appl topical TID [[employer] As directed] omeprazole 40 mg PO DAILY 30 days prednisone 50 mg PO DAILY sertraline 25 mg PO DAILY 30 days tramadol 50 mg PO BID PRN Ventolin HFA 90 mcg/actuation (albuterol sulfate) 2 puffs PO Q6H PRN NS Tobacco use date assessed: 12/01/24 Dental Screening Dental Screen Date: 12/01/24 Did you have a dental visit in the last 12 months?: Yes Did you have a dental problem in the last 6 months where you did not have access to dental care?: No Was dental information given to patient?: Patient has dentist HPI Chemical Reaction to Hair Dye [facility] [place] 11[place] HPI Details Patient comes in today for her [facility] follow-up visit Relates that she went to the ER a few days ago for increased irritation, itching and pain over her scalp and was diagnosed with an allergic reaction or a chemical burn due to a hair coloring/dye that was used on her at a hair salon last week Recalls that she started experiencing some itching and irritation on her scalp a few hours after she had her hair dyed but did not seek medical attention immediately as she thought it was just due to dry skin on her scalp She noticed (+) pain and worsening irritation over her scalp the next day as well as some irritation and redness over her forehead and around her eyes She then started noticing yellowish fluid draining from her scalp and blister- like lesions around her eyes on the third day Relates that she first called the office for advice but went to the ER when she did not hear back from the office immediately She was reportedly given some IV and oral Benadryl at the ER as well as IV and oral famotidine, IV prednisone and IV morphine as first aid into provide her some relief from her symptoms Attempt was made to help wean the patient off in scalp in the ER for better examination and she was advised that she likely has an allergic reaction/contact dermatitis versus possible chemical burn injury from the hair dye was used on her She was eventually discharged back home with some additional prednisone, Pepcid, topical mupirocin and oral tramadol PRN for pain Patient states that her symptoms have improved significantly since her ER visit a few days ago but she continues to experience (+) irritation and discomfort on her scalp, the blister like lesions around her eyes have mostly cleared up although she still has some residual minimal erythema on her forehead at the hairline She denies any fever, headaches or dizziness She denies any chest pains, no increased shortness of breath No nausea/vomiting, no abdominal pain No change in bowel habits noted [facility] Medical History (Updated 12/02/24 @ 03:58 by Toribio Clark MD) Allergic rhinitis Lumbar degenerative disc disease Gastritis Smoker Alcohol use Anxiety Asthma Surgical History No pertinent past surgical history Family History Father No problems noted. Mother No problems noted. Social History Housing: Apartment Alcohol intake: current Alcohol intake frequency: holidays/special occasions only Alcohol type: wine Patient Tobacco Use Status: Current everyday Tobacco user Tobacco use type: Cigarette Cigarette Packs Per Day: 1 Cigarettes Per Day: 12 e-Cigarette/Vaping Use: Never Used Second Hand Smoke Exposure: Yes Substance Use Type: Marijuana service: No Current occupational status: unemployed Cognitive needs: No Hearing needs: No Vision needs: No Questionnaire PHQ-9 Over the last 2 weeks, how often have you been bothered by any of the following problems? 1. Little interest or pleasure in doing things: nearly every day 2. Feeling down, depressed, or hopeless: several days 3. Trouble falling or staying asleep, or sleeping too much: nearly every day 4. Feeling tired or having little energy: more than half the days 5. Poor appetite or overeating: not at all 6. Feeling bad about yourself - or that you are a failure or have let yourself or your family down: more than half the days 7. Trouble concentrating on things, such as reading the newspaper or watching television: not at all 8. Moving or speaking so slowly that other people could have noticed. Or the opposite - being so fidgety or restless that you have been moving around a lot more than usual: not at all 9. Thoughts that you would be better off or of hurting yourself in some way: not at all Total score: 11 Depression Screening Interpretation: Positive Depression Screening Follow-up: Existing condition and In treatment Depression Screening Done: Yes 87916 - PHQ-9 Billing: Yes Source: Developed by Drs. Trae Kimball, Devorah Barnes, Ed Joiner and colleagues, with an educational hair from [employer]. Thrive Questionnaire Date Thrive assessed: 12/01/24 I am a: Patient What is your living situation today?: I have a steady place to live Within the past 12 months, did the food you bought not last and you didn't have the money to get more?: Never true Within the past 12 months, did you worry whether your food would run out before you got money to buy more?: Never true Do you have trouble paying for medicines?: No Do you have trouble getting transportation to medical appointments?: No Do you have trouble paying your heating and electricity bill?: No Do you have trouble taking care of your child, family member or friend?: No Do you have trouble with day-to-day activities such as bathing, preparing meals, shopping, managing finances, etc.?: No Are you currently unemployed and looking for a job?: I choose not to answer this question Are you interested in more education?: No Please select the resources that you would like help with: None Currently or been in a relationship where the following occur: No concerns reported THRIVE Score: 0 AUDIT C Alcohol Use Questionnaire (AUDIT-C) 1. How often do you have a drink containing alcohol?: 4 or more times a week 2. How many drinks containing alcohol do you have on a typical day when you are drinking?: 1 or 2 3. How often do you have six or more drinks on one occasion?: Never Total Score: 4 Score Reviewed/Action Taken: Yes GLEN-7 AMB Questionnaire GLEN-7 Date GLEN - 7 assessed: 12/01/24 Feeling nervous, anxious, or on edge: 3 = Nearly every day Not being able to stop or control worryin = Nearly every day Worrying too much about different things: 3 = Nearly every day Trouble relaxin = More than half the days Being so restless that it is hard to sit still: 2 = More than half the days Becoming easily annoyed or irritable: 3 = Nearly every day Feeling afraid as if something awful might happen: 3 = Nearly every day Total GLEN-7 score (0-4 normal; 5-9 mild; 10-14 moderate; 15-21 severe): 19 Source: Developed by Drs. Trae Kimball, Devorah Barnes, Ed Joiner and colleagues, with an educational hair from [employer]. Review of Systems Const Denies chills, Reports difficulty sleeping, Reports fatigue, Denies fever(s) and Denies headache(s) ENT Denies dysphagia, Denies dizziness, Denies otalgia, Denies headache(s), Denies neck pain, Denies odynophagia and Denies sore throat Card Denies chest pain, Denies palpitations and Denies dyspnea Resp Denies chest congestion, Denies cough and Denies dyspnea GI Denies abdominal pain, Denies constipation, Denies dysphagia, Denies heartburn, Denies diarrhea, Denies nausea, Denies odynophagia and Denies vomiting Denies difficulty voiding, Denies nocturia, Denies dysuria and Denies urinary urgency Musc Reports back pain (over the lower back) and Denies neck pain Skin/Breast Reports as per HPI, Reports pruritus (on the scalp) and Reports rash (over the scalp) Neuro Denies dizziness and Denies headache(s) Psych Reports anxiety Endo Reports fatigue and Denies palpitations Physical exam (Primary Care) Vital Signs: Last Vital Signs Pulse 109 H 12/01/24 12:44 BP 152/84 H 12/01/24 12:44 Pulse Ox 96 12/01/24 12:44 Oxygen Delivery Method Room Air 12/01/24 12:44 BMI result Body Mass Index 23.1 Tobacco/Smoking Status: Tobacco use Status Tobacco use date assessed 12/01/24 12/01/24 12:50 Patient Tobacco Use Status Current everyday Tobacco 12/01/24 12:50 Tobacco use type Cigarette 12/01/24 12:50 e-Cigarette/Vaping Use Never Used 12/01/24 12:50 PHQ-9: PHQ-9 Score PHQ-9: Total score 11 12/02/24 02:17 Depression Screening Interpretation: Positive Depression Screening Follow-up: Existing condition and In treatment Thrive Assessment: Date of Thrive Assessment Date Thrive assessed 12/01/24 12/01/24 12:50 Currently or been in a relationship where the following occur: No concerns reported Const General: no acute distress and alert HENMT Other: (+) erthema with still (+) scattered crusting noted over thee entire scalp; hair is clumped together in some places, with slightly yellowish dried secretions noted; (+) minimal residual erythema over the forehead immediately adjacent to the hairline Throat: Yes posterior oropharynx normal and Yes tonsils normal (no TP congestion) Neck Neck: Yes supple and Yes lymphadenopathy (over the posterior cervical areas bilaterally) Thyroid: Thyroid normal Resp Auscultation: clear to auscultation bilaterally, no rales and no wheezes Cardio Rate: regular rate Rhythm: regular rhythm Heart sounds: no murmurs GI Palpation (GI): Soft to palpation and nontender Auscultation: normal bowel sounds General: Yes no CVA tenderness Back/Spine/Pelvis Back: no CVA tenderness Thoracic/Lumbar Spine: lumbar spinal tenderness Extrem General: Yes no clubbing, cyanosis or edema Coding Level of Care Code Est Pt Level 3 (44769) Diagnoses Irritant contact dermatitis of scalp L24.9 Cellulitis of scalp L03.811 Additional Codes PHQ-9 - 02160 - PHQ-9 Billing: Yes ([id number]) Assessment & Plan Assessment & Plan (1) Irritant contact dermatitis of scalp: Code(s): L24.9 - Irritant contact dermatitis, unspecified cause Category: Medical (2) Cellulitis of scalp: Code(s): L03.811 - Cellulitis of head [any part, except face] Category: Medical Plan Continue oral prednisone Will start patient empirically on Doxycycline 100 mg BID x 7 days Continue Diphenhydramine 25 mg TID PRN Will also start patient on Clobetasol 0.05% scalp solution BID x 2 weeks Have reminded her that she can wash her hair but only with baby shampoo; would avoid other commercial shampoos as they often contain chemicals that may further irritate her scalp Will refer her as well to dermatology for further evaluation and management To return as scheduled in January 2025 for her annual physical examination Orders: Referrals Dermatology Referral L24.9 - Irritant contact dermatitis, unspecified cause Medications: New doxycycline hyclate 100 mg PO BID 14 caps 0RF 7 days diphenhydramine HCl 25 mg PO TID PRN 90 caps 0RF allergy symptoms clobetasol 0.05% 1 appl topical BID 50 mL 0RF scalp allergic reaction 2 weeks
== END 2024-12-01 13:28 | disposition home or self-care (01) ==
PROVIDERS: PCP Internal Medicine; Visit Provider Internal Medicine
DX: L24.9 Irritant contact dermatitis, unspecified cause (principal); L03.811 Cellulitis of head [any part, except face]

== ENCOUNTER → 2024-12-01 12:43 | Outpatient (BNVA) | payer OTHER, SELFPAY | PROVIDERS: PCP Internal Medicine; Visit Provider Internal Medicine | DX: L24.9 Irritant contact dermatitis, unspecified cause (principal); L03.811 Cellulitis of head [any part, except face] | CPT/HCPCS: 96127; 99212 ==